=== PATIENT | female | born 1970 | race Caucasian/White ===

== ENCOUNTER 2016-10-19 20:11 | Emergency (ER) | payer OTHER ==
[2016-10-19 20:31] VITALS: BP 124/73; PULSE 83; TEMP 98.8; BMI 21.5
--- NOTE | 2016-10-19 21:53 | PDOC ---
History of Present Illness - General Chief Complaint: Ear Problem Stated Complaint: EAR PROBLEM Time Seen by Provider: 10/19/16 21:37 History Source: Patient - History of Present Illness Initial Comments: 10/19/16 21:55 Chief complaint: Difficulty hearing for 1 month Patient 46-year-old female with no nuchal issues who states that she's been having problems hearing for almost a month. Otherwise feels well, no illness. GENERAL/CONSTITUTIONAL: No fever, weakness. dizziness HEAD, EYES, EARS, NOSE AND THROAT: No change in vision. No ear pain or discharge. + Decreased hearing specially right ear. No sore throat. CARDIOVASCULAR: No chest pain RESPIRATORY: No shortness of breath or cough GASTROINTESTINAL: No pain, nausea, vomiting, diarrhea or constipation GENITOURINARY: No dysuria MUSCULOSKELETAL: No neck or back pain SKIN: No rash NEUROLOGIC: No headache, vertigo, loss of consciousness, or loss of sensation. GENERAL: The patient is awake, alert, and fully oriented, in no acute distress. HEAD: Normal with no signs of trauma. EYES: Pupils equal, round and reactive to light, sclera anicteric, conjunctiva clear. ENT: Ears: Left clear, TM normal, right with good amount of cerumen in the canal , unable to see TM, pharynx: no erythema, no exudate, uvula midline NECK: supple CHEST: clear, nontender, rr ABD: soft, nontender EXTREMITIES: Normal range of motion, no edema. NEUROLOGICAL: Normal speech, normal gait. SKIN: Warm, Dry Past History - Past Medical History Allergies/Adverse Reactions: Allergies Allergy/AdvReac Type Severity Reaction Status Date / Time No Known Allergies Allergy Verified 10/19/16 20:29 Home Medications: Ambulatory Orders NK [No Known Home Medication] 10/19/16 Psychiatric Problems: Yes (ANXIETY.) - Immunization History Immunization Up to Date: Yes - Psycho/Social/Smoking Cessation Hx Anxiety: Yes Suicidal Ideation: No Smoking Status: Yes Smoking History: Current every day smoker Number of Cigarettes Smoked Daily: 20 Information on smoking cessation initiated: No Hx Alcohol Use: No Drug/Substance Use Hx: No Substance Use Type: None *Physical Exam - Vital Signs Last Vital Signs Temp Pulse Resp BP Pulse Ox 98.8 F 83 20 124/73 99 10/19/16 20:29 10/19/16 20:29 10/19/16 20:29 10/19/16 20:29 10/19/16 20:29 Medical Decision Making - Medical Decision Making 10/19/16 23:06 Patient with excessive cerumen to the right ear, will be referred to ENT *DC/Admit/Observation/Transfer Diagnosis at time of Disposition: Excessive cerumen in right ear canal - Discharge Dispostion Disposition: HOME Condition at time of disposition: Stable Admit: No - Referrals Referrals: Jorge Chavira MD [Staff Physician] - - Patient Instructions Printed Discharge Instructions: DI for Cerumen Impaction Additional Instructions: Use the [facility] as instructed, follow-up with the ENT
== END 2016-10-19 22:06 | disposition home or self-care (01) ==
LOC: JERFT 20:11
DX: H61.21 Impacted cerumen, right ear (principal)
CPT/HCPCS: 99281-25

== ENCOUNTER 2019-03-27 12:13 | Emergency (ER) | payer OTHER | END 2019-03-27 16:24 | disposition home or self-care (01) | LOC: JER 12:13 ==